=== PATIENT | female | born 1995 ===

== ENCOUNTER 2022-04-30 19:19 | Emergency (ER) | payer OTHER, SELFPAY ==
[2022-04-30 20:09] VITALS: BP 135/87; PULSE 90; RESP 18; TEMP 36.8; O2SAT 99
--- NOTE | 2022-04-30 22:16 | PC.NURSE ---
no answer x2 when called for room.
--- NOTE | 2022-04-30 22:32 | PC.NURSE ---
Patient called to place in exam room x2 without response. Patient was not seen leaving the ER but was also not seen in the waiting room. Patient is assumed to have left without being seen by the provider.
== END 2022-04-30 22:32 | disposition left against medical advice (07) ==
DX: R07.81 Pleurodynia (principal)
CPT/HCPCS: 99199